=== PATIENT | male | born 1965 | race Caucasian/White ===

== ENCOUNTER 2020-08-31 10:34 | Inpatient (IN) | payer OTHER ==
[~2020-08-31] VITALS: Ht 180.3 cm; Wt 102.1 kg
[~2020-08-31 10:34] MED LIST: AMLODIPINE BESY10 MG PO; HYDROCHLOROTHIA25 MG PO; SIMVASTATIN20 MG PO; VASOTEC5 MG PO; ZESTRIL20 MG PO
[2020-08-31 11:13] LABS: BASOPHILS % 0.2 % (0.0-1.0); HEMATOCRIT 41.3 % (38.2-49.6); HEMOGLOBIN 14.5 g/dL (14.0-18.0); LYMPHOCYTES # (AUTO) 0.9 (1.0-3.2); LYMPHOCYTES % 6.7 % (18.0-39.1); MEAN CORPUSCULAR HEMOGLOBIN 31.3 pg (28-32); MEAN CORPUSCULAR HGB CONC 35.1 g/dL (31-35); MEAN CORPUSCULAR VOLUME 89.2 fL (81-99); MONOCYTES # (AUTO) 0.7 (0.2-0.8); NEUTROPHILS # (AUTO) 11.3 (2.1-6.9); NEUTROPHILS % 87.1 % (38.7-80.0); PLATELET COUNT 342 x10e3/uL (140-360); RED BLOOD COUNT 4.63 x10e6/uL (4.3-5.7); RED CELL DISTRIBUTION WIDTH 12.8 % (11.7-14.4)
[2020-08-31 11:34] LABS: ALBUMIN/GLOBULIN RATIO 0.7 (0.8-2.0); ANION GAP 26.6 mmol/L (8-16); CALCIUM 8.1 mg/dL (8.4-10.2); CREATININE, SERUM 2.05 mg/dL (0.72-1.25); POTASSIUM 3.6 mmol/L (3.5-5.1)
[2020-08-31 11:41] LABS: CREATINE KINASE MB 4.2 ng/mL (0-5.0)
[2020-08-31] MEDS ORDERED: DOCUSATE SODIUM 100 MG CAP PO PRN (13:15)
[2020-08-31] MEDS ORDERED: HYDRALAZINE HCL 20 MG/ML VIAL IV PRN (13:15)
[2020-08-31] MEDS ORDERED: BENZONATATE 100 MG CAP PO PRN (13:15)
[2020-08-31] MEDS ORDERED: POLYETHYLENE GLYCOL 3350 17 GM PACK PO PRN (13:15)
[2020-08-31] MEDS ORDERED: SIMETHICONE 80 MG CHEW PO PRN (13:15)
[2020-08-31] MEDS ORDERED: POTASSIUM CHLORIDE 20 MEQ TAB CR PO PRN (13:15)
[2020-08-31] MEDS ORDERED: DIPHENHYDRAMINE HCL 25 MG CAP PO PRN (13:15)
[2020-08-31] MEDS ORDERED: DEXTROSE 50% SYRINGE 50 ML IV PRN (13:15)
[2020-08-31] MEDS ORDERED: HYDROCODONE/APAP 5MG-325MG TAB PO PRN (13:15)
[2020-08-31] MEDS ORDERED: LIDOCAINE 4% PATCH TP PRN (13:15)
[2020-08-31] MEDS ORDERED: ONDANSETRON HCL INJ 2MG/ML 2ML 2 MG/ML VIAL IV PRN (13:15)
[2020-08-31] MEDS ORDERED: CHLORASEPTIC SPRAY 177 ML BTL MM PRN (13:15)
[2020-08-31] MEDS ORDERED: DEXAMETHASONE PHOS 4MG/ML 5ML MULTIDOSE VIAL IV SCH (13:15)
[2020-08-31] MEDS ORDERED: REMDESIVIR 200MG/NS 100ML 200 MG in SODIUM CHLORIDE 0.9% 100 ML 100 ML IV ONE (14:30)
[2020-08-31] MEDS: DEXAMETHASONE SOD PHOS INJ 4 MG/ML VIAL IV SCH (14:36)
[2020-08-31] MEDS: CEFTRIAXONE SOD 1 GM/NS 50 ML 50 ML IV SCH (14:36)
[2020-08-31] MEDS ORDERED: SODIUM CHLORIDE 0.9% 50ML 50 ML ONE (14:58)
[2020-08-31] MEDS ORDERED: LACTATED RINGER'S 1,000 ML INJ ONE (15:45)
[2020-08-31] MEDS: ASCORBIC ACID 500 MG TAB PO SCH (16:53)
[2020-08-31] MEDS: ENOXAPARIN SOD INJ 40 MG/0.4 ML SYR SC SCH (16:53)
[2020-08-31] MEDS: AZITHROMYCIN 500MG/NS 250 ML 250 ML IV SCH (16:53)
[2020-09-01 06:24] LABS: BASOPHILS % 0.1 % (0.0-1.0); HEMATOCRIT 37.3 % (38.2-49.6); HEMOGLOBIN 13.2 g/dL (14.0-18.0); LYMPHOCYTES # (AUTO) 0.9 (1.0-3.2); LYMPHOCYTES % 13.4 % (18.0-39.1); MEAN CORPUSCULAR HEMOGLOBIN 31.4 pg (28-32); MEAN CORPUSCULAR HGB CONC 35.4 g/dL (31-35); MEAN CORPUSCULAR VOLUME 88.6 fL (81-99); MONOCYTES # (AUTO) 0.5 (0.2-0.8); MONOCYTES % 6.8 % (4.4-11.3); NEUTROPHILS # (AUTO) 5.5 (2.1-6.9); NEUTROPHILS % 78.5 % (38.7-80.0); PLATELET COUNT 318 x10e3/uL (140-360); RED BLOOD COUNT 4.21 x10e6/uL (4.3-5.7); RED CELL DISTRIBUTION WIDTH 12.5 % (11.7-14.4)
[2020-09-01 06:59] LABS: LYMPHOCYTES % (MANUAL) 8 % (19-48); METAMYELOCYTES % (MANUAL) 1 % (0-0); MONOCYTES % (MANUAL) 6 % (3.4-9.0); NEUTROPHILS % (MANUAL) 84 % (40-74); PLATELET ESTIMATE ADEQUATE; PLATELET MORPHOLOGY COMMENT NORMAL; RBC MORPHOLOGY COMMENT NORMAL
[2020-09-01 07:09] LABS: ALANINE AMINOTRANSFERASE 75 IU/L (0-55); ALBUMIN 2.4 g/dL (3.5-5.0); ALBUMIN/GLOBULIN RATIO 0.6 (0.8-2.0); ALKALINE PHOSPHATASE 56 IU/L (40-150); ANION GAP 18.8 mmol/L (8-16); BLOOD UREA NITROGEN 50 mg/dL (7-26); BUN/CREATININE RATIO 45 (6-25); CALCIUM 7.8 mg/dL (8.4-10.2); CARBON DIOXIDE 24 mmol/L (22-29); CHLORIDE 94 mmol/L (98-107); CREATININE, SERUM 1.12 mg/dL (0.72-1.25); EST GLOMERULAR FILTRATION RATE > 60 ML/MIN (60-); GLUCOSE 139 mg/dL (74-118); POTASSIUM 3.8 mmol/L (3.5-5.1); SODIUM 133 mmol/L (136-145)
[2020-09-01 07:26] LABS: CREATINE KINASE MB 6.3 ng/mL (0-5.0)
[2020-09-01 07:47] LABS: MAGNESIUM 2.8 MG/DL (1.3-2.1); PHOSPHORUS 4.1 MG/DL (2.3-4.7)
[2020-09-01] MEDS: PANTOPRAZOLE SOD 40 MG TABEC PO SCH (07:56)
[2020-09-01 08:06] LABS: FERRITIN 1882.23 ng/mL (21.81-274.66)
[2020-09-01] MEDS: DEXAMETHASONE SOD PHOS INJ 4 MG/ML VIAL IV SCH (08:13)
[2020-09-01] MEDS: LISINOPRIL 20 MG TAB PO SCH (08:13)
[2020-09-01] MEDS: ASCORBIC ACID 500 MG TAB PO SCH ×2 (08:13→17:12)
[2020-09-01] MEDS: ZINC SULFATE 220 MG CAP PO SCH (08:13)
[2020-09-01] MEDS: AMLODIPINE BESYLATE 10 MG TAB PO SCH (08:14)
[2020-09-01] MEDS: CEFTRIAXONE SOD 1 GM/NS 50 ML 50 ML IV SCH (12:30)
[2020-09-01] MEDS: AZITHROMYCIN 500MG/NS 250 ML 250 ML IV SCH (13:00)
[2020-09-01] MEDS: REMDESIVIR 100MG/NS 100ML 100 MG in SODIUM CHLORIDE 0.9% 100 ML 100 ML IV SCH ×2 (13:00→15:00)
[2020-09-01 13:42] LABS: CREATINE KINASE MB 7.2 ng/mL (0-5.0)
[2020-09-01] MEDS ORDERED: SODIUM CHLORIDE 0.9% 50ML 50 ML ONE (15:08)
[2020-09-01] MEDS: ENOXAPARIN SOD INJ 40 MG/0.4 ML SYR SC SCH (17:12)
[2020-09-01 20:00] VITALS: BP 104/66
[2020-09-01 23:00] VITALS: BP 118/60
[2020-09-02] VITALS (28 sets, daily range): BP systolic 107–141; BP diastolic 36–74
[2020-09-02] MEDS: ASCORBIC ACID 500 MG TAB PO SCH ×2 (08:15→17:12)
[2020-09-02] MEDS: ZINC SULFATE 220 MG CAP PO SCH (08:15)
[2020-09-02] MEDS: DEXAMETHASONE SOD PHOS INJ 4 MG/ML VIAL IV SCH (08:16)
[2020-09-02] MEDS: PANTOPRAZOLE SOD 40 MG TABEC PO SCH (08:16)
[2020-09-02] MEDS: LISINOPRIL 20 MG TAB PO SCH (08:30)
[2020-09-02] MEDS: AMLODIPINE BESYLATE 10 MG TAB PO SCH (08:32)
[2020-09-02] MEDS: GUAIFENESIN/CODEINE 10 ML CUP PO PRN (08:33)
[2020-09-02] MEDS: CEFTRIAXONE SOD 1 GM/NS 50 ML 50 ML IV SCH (14:12)
[2020-09-02] MEDS: AZITHROMYCIN 500MG/NS 250 ML 250 ML IV SCH (14:12)
[2020-09-02] MEDS: REMDESIVIR 100MG/NS 100ML 100 MG in SODIUM CHLORIDE 0.9% 100 ML 100 ML IV SCH (15:00)
[2020-09-02] MEDS: ENOXAPARIN SOD INJ 40 MG/0.4 ML SYR SC SCH (17:12)
[2020-09-03] VITALS (22 sets, daily range): BP systolic 123–163; BP diastolic 63–90
[2020-09-03 04:46] LABS: BASOPHILS # (AUTO) 0.1 (0.0-0.1); BASOPHILS % 0.4 % (0.0-1.0); HEMATOCRIT 43.8 % (38.2-49.6); HEMOGLOBIN 14.6 g/dL (14.0-18.0); LYMPHOCYTES # (AUTO) 1.3 (1.0-3.2); MEAN CORPUSCULAR HEMOGLOBIN 31.6 pg (28-32); MEAN CORPUSCULAR HGB CONC 33.3 g/dL (31-35); MEAN CORPUSCULAR VOLUME 94.8 fL (81-99); MONOCYTES # (AUTO) 0.9 (0.2-0.8); MONOCYTES % 5.8 % (4.4-11.3); NEUTROPHILS # (AUTO) 13.7 (2.1-6.9); NEUTROPHILS % 84.4 % (38.7-80.0); PLATELET COUNT 418 x10e3/uL (140-360); RED BLOOD COUNT 4.62 x10e6/uL (4.3-5.7); RED CELL DISTRIBUTION WIDTH 12.6 % (11.7-14.4)
[2020-09-03 05:10] LABS: ALANINE AMINOTRANSFERASE 72 IU/L (0-55); ALBUMIN 2.5 g/dL (3.5-5.0); ALBUMIN/GLOBULIN RATIO 0.6 (0.8-2.0); ALKALINE PHOSPHATASE 71 IU/L (40-150); BLOOD UREA NITROGEN 35 mg/dL (7-26); BUN/CREATININE RATIO 43 (6-25); CALCIUM 7.7 mg/dL (8.4-10.2); CARBON DIOXIDE 25 mmol/L (22-29); CHLORIDE 97 mmol/L (98-107); CREATININE, SERUM 0.82 mg/dL (0.72-1.25); EST GLOMERULAR FILTRATION RATE > 60 ML/MIN (60-); GLUCOSE 136 mg/dL (74-118); SODIUM 137 mmol/L (136-145)
[2020-09-03 07:30] LABS: LYMPHOCYTES % (MANUAL) 8 % (19-48); MONOCYTES % (MANUAL) 7 % (3.4-9.0); NEUTROPHILS % (MANUAL) 83 % (40-74); PLATELET ESTIMATE SLIGHTLY INCREASED; PLATELET MORPHOLOGY COMMENT NORMAL; RBC MORPHOLOGY COMMENT NORMAL
[2020-09-03] MEDS: PANTOPRAZOLE SOD 40 MG TABEC PO SCH (07:59)
[2020-09-03] MEDS: DEXAMETHASONE SOD PHOS INJ 4 MG/ML VIAL IV SCH (07:59)
[2020-09-03] MEDS: ASCORBIC ACID 500 MG TAB PO SCH ×2 (07:59→17:09)
[2020-09-03] MEDS: ZINC SULFATE 220 MG CAP PO SCH (08:00)
[2020-09-03] MEDS: LISINOPRIL 20 MG TAB PO SCH (08:00)
[2020-09-03] MEDS: AMLODIPINE BESYLATE 10 MG TAB PO SCH (08:00)
[2020-09-03] MEDS: CEFTRIAXONE SOD 1 GM/NS 50 ML 50 ML IV SCH (13:52)
[2020-09-03] MEDS: REMDESIVIR 100MG/NS 100ML 100 MG in SODIUM CHLORIDE 0.9% 100 ML 100 ML IV SCH (13:52)
[2020-09-03] MEDS: AZITHROMYCIN 500MG/NS 250 ML 250 ML IV SCH (13:52)
[2020-09-03] MEDS: ENOXAPARIN SOD INJ 40 MG/0.4 ML SYR SC SCH (17:09)
[2020-09-04] VITALS (18 sets, daily range): BP systolic 107–182; BP diastolic 48–93
[2020-09-04 05:03] LABS: BASOPHILS % 0.3 % (0.0-1.0); EOSINOPHILS % 0.2 % (0.0-6.0); HEMATOCRIT 42.4 % (38.2-49.6); HEMOGLOBIN 14.4 g/dL (14.0-18.0); LYMPHOCYTES # (AUTO) 0.9 (1.0-3.2); MEAN CORPUSCULAR HEMOGLOBIN 31.2 pg (28-32); MONOCYTES # (AUTO) 0.6 (0.2-0.8); MONOCYTES % 4.6 % (4.4-11.3); NEUTROPHILS # (AUTO) 11.3 (2.1-6.9); NEUTROPHILS % 85.8 % (38.7-80.0); PLATELET COUNT 317 x10e3/uL (140-360); RED BLOOD COUNT 4.61 x10e6/uL (4.3-5.7); RED CELL DISTRIBUTION WIDTH 12.5 % (11.7-14.4)
[2020-09-04 05:31] LABS: ALANINE AMINOTRANSFERASE 72 IU/L (0-55); ALBUMIN 2.5 g/dL (3.5-5.0); ALBUMIN/GLOBULIN RATIO 0.6 (0.8-2.0); ALKALINE PHOSPHATASE 78 IU/L (40-150); ANION GAP 17.2 mmol/L (8-16); BLOOD UREA NITROGEN 27 mg/dL (7-26); BUN/CREATININE RATIO 33 (6-25); CALCIUM 7.8 mg/dL (8.4-10.2); CARBON DIOXIDE 27 mmol/L (22-29); CHLORIDE 99 mmol/L (98-107); CREATININE, SERUM 0.81 mg/dL (0.72-1.25); EST GLOMERULAR FILTRATION RATE > 60 ML/MIN (60-); GLUCOSE 119 mg/dL (74-118); POTASSIUM 4.2 mmol/L (3.5-5.1); SODIUM 139 mmol/L (136-145)
[2020-09-04] MEDS: LISINOPRIL 20 MG TAB PO SCH (09:00)
[2020-09-04] MEDS: DEXAMETHASONE SOD PHOS INJ 4 MG/ML VIAL IV SCH (09:01)
[2020-09-04] MEDS: AMLODIPINE BESYLATE 10 MG TAB PO SCH (09:01)
[2020-09-04] MEDS: ASCORBIC ACID 500 MG TAB PO SCH ×2 (09:01→17:02)
[2020-09-04] MEDS: ZINC SULFATE 220 MG CAP PO SCH (09:01)
[2020-09-04] MEDS: PANTOPRAZOLE SOD 40 MG TABEC PO SCH (09:01)
[2020-09-04] MEDS: CEFTRIAXONE SOD 1 GM/NS 50 ML 50 ML IV SCH (12:42)
[2020-09-04] MEDS: AZITHROMYCIN 500MG/NS 250 ML 250 ML IV SCH (12:42)
[2020-09-04] MEDS: REMDESIVIR 100MG/NS 100ML 100 MG in SODIUM CHLORIDE 0.9% 100 ML 100 ML IV SCH (14:54)
[2020-09-04] MEDS: ENOXAPARIN SOD INJ 40 MG/0.4 ML SYR SC SCH (17:02)
[2020-09-05] VITALS (12 sets, daily range): BP systolic 107–132; BP diastolic 52–82
[2020-09-05 07:56] LABS: BASOPHILS % 0.3 % (0.0-1.0); EOSINOPHILS # (AUTO) 0.1 (0.0-0.4); EOSINOPHILS % 0.7 % (0.0-6.0); HEMATOCRIT 40.9 % (38.2-49.6); HEMOGLOBIN 13.8 g/dL (14.0-18.0); LYMPHOCYTES # (AUTO) 0.9 (1.0-3.2); LYMPHOCYTES % 7.7 % (18.0-39.1); MEAN CORPUSCULAR HEMOGLOBIN 31.2 pg (28-32); MEAN CORPUSCULAR HGB CONC 33.7 g/dL (31-35); MEAN CORPUSCULAR VOLUME 92.5 fL (81-99); MONOCYTES # (AUTO) 0.4 (0.2-0.8); MONOCYTES % 3.5 % (4.4-11.3); NEUTROPHILS # (AUTO) 10.3 (2.1-6.9); NEUTROPHILS % 85.4 % (38.7-80.0); PLATELET COUNT 259 x10e3/uL (140-360); RED BLOOD COUNT 4.42 x10e6/uL (4.3-5.7); RED CELL DISTRIBUTION WIDTH 12.6 % (11.7-14.4)
[2020-09-05] MEDS: PANTOPRAZOLE SOD 40 MG TABEC PO SCH (07:58)
[2020-09-05] MEDS: DEXAMETHASONE SOD PHOS INJ 4 MG/ML VIAL IV SCH (07:58)
[2020-09-05] MEDS: ASCORBIC ACID 500 MG TAB PO SCH ×2 (07:59→18:05)
[2020-09-05] MEDS: ZINC SULFATE 220 MG CAP PO SCH (07:59)
[2020-09-05] MEDS: LISINOPRIL 20 MG TAB PO SCH (08:09)
[2020-09-05] MEDS: AMLODIPINE BESYLATE 10 MG TAB PO SCH (08:09)
[2020-09-05 08:14] LABS: ANION GAP 16.3 mmol/L (8-16); BLOOD UREA NITROGEN 25 mg/dL (7-26); BUN/CREATININE RATIO 36 (6-25); CALCIUM 7.7 mg/dL (8.4-10.2); CARBON DIOXIDE 27 mmol/L (22-29); CHLORIDE 100 mmol/L (98-107); EST GLOMERULAR FILTRATION RATE > 60 ML/MIN (60-); GLUCOSE 111 mg/dL (74-118); POTASSIUM 4.3 mmol/L (3.5-5.1); SODIUM 139 mmol/L (136-145)
[2020-09-05] MEDS: CEFTRIAXONE SOD 1 GM/NS 50 ML 50 ML IV SCH (13:16)
[2020-09-05] MEDS: GUAIFENESIN/CODEINE 10 ML CUP PO PRN (14:02)
[2020-09-05] MEDS: ENOXAPARIN SOD INJ 40 MG/0.4 ML SYR SC SCH (18:05)
[2020-09-06] VITALS (20 sets, daily range): BP systolic 119–140; BP diastolic 70–86
[2020-09-06 06:04] LABS: BASOPHILS % 0.2 % (0.0-1.0); EOSINOPHILS # (AUTO) 0.1 (0.0-0.4); EOSINOPHILS % 0.9 % (0.0-6.0); HEMATOCRIT 38.5 % (38.2-49.6); HEMOGLOBIN 13.1 g/dL (14.0-18.0); LYMPHOCYTES # (AUTO) 0.7 (1.0-3.2); LYMPHOCYTES % 7.8 % (18.0-39.1); MEAN CORPUSCULAR HEMOGLOBIN 31.8 pg (28-32); MEAN CORPUSCULAR VOLUME 93.4 fL (81-99); MONOCYTES # (AUTO) 0.6 (0.2-0.8); MONOCYTES % 6.9 % (4.4-11.3); NEUTROPHILS # (AUTO) 7.4 (2.1-6.9); NEUTROPHILS % 82.1 % (38.7-80.0); PLATELET COUNT 224 x10e3/uL (140-360); RED BLOOD COUNT 4.12 x10e6/uL (4.3-5.7); RED CELL DISTRIBUTION WIDTH 12.6 % (11.7-14.4)
[2020-09-06 06:38] LABS: ANION GAP 14.6 mmol/L (8-16); BLOOD UREA NITROGEN 27 mg/dL (7-26); BUN/CREATININE RATIO 41 (6-25); CALCIUM 7.6 mg/dL (8.4-10.2); CARBON DIOXIDE 27 mmol/L (22-29); CHLORIDE 102 mmol/L (98-107); CREATININE, SERUM 0.66 mg/dL (0.72-1.25); EST GLOMERULAR FILTRATION RATE > 60 ML/MIN (60-); GLUCOSE 129 mg/dL (74-118); POTASSIUM 4.6 mmol/L (3.5-5.1); SODIUM 139 mmol/L (136-145)
[2020-09-06] MEDS: PANTOPRAZOLE SOD 40 MG TABEC PO SCH (08:05)
[2020-09-06] MEDS: DEXAMETHASONE SOD PHOS INJ 4 MG/ML VIAL IV SCH (09:32)
[2020-09-06] MEDS: AMLODIPINE BESYLATE 10 MG TAB PO SCH (09:33)
[2020-09-06] MEDS: ZINC SULFATE 220 MG CAP PO SCH (09:33)
[2020-09-06] MEDS: LISINOPRIL 20 MG TAB PO SCH (09:33)
[2020-09-06] MEDS: ASCORBIC ACID 500 MG TAB PO SCH ×2 (09:33→17:50)
[2020-09-06] MEDS: ENOXAPARIN SOD INJ 40 MG/0.4 ML SYR SC SCH (17:50)
[2020-09-07] VITALS (20 sets, daily range): BP systolic 102–135; BP diastolic 56–99
[2020-09-07] MEDS: MELATONIN 5 MG TABLET PO PRN (00:06)
[2020-09-07] MEDS: GUAIFENESIN/CODEINE 10 ML CUP PO PRN (04:06)
[2020-09-07 06:19] LABS: BASOPHILS % 0.3 % (0.0-1.0); EOSINOPHILS # (AUTO) 0.2 (0.0-0.4); EOSINOPHILS % 1.1 % (0.0-6.0); HEMATOCRIT 39.7 % (38.2-49.6); HEMOGLOBIN 13.3 g/dL (14.0-18.0); LYMPHOCYTES # (AUTO) 0.8 (1.0-3.2); LYMPHOCYTES % 6.1 % (18.0-39.1); MEAN CORPUSCULAR HEMOGLOBIN 30.9 pg (28-32); MEAN CORPUSCULAR HGB CONC 33.5 g/dL (31-35); MEAN CORPUSCULAR VOLUME 92.3 fL (81-99); MONOCYTES # (AUTO) 0.6 (0.2-0.8); MONOCYTES % 4.4 % (4.4-11.3); NEUTROPHILS # (AUTO) 11.3 (2.1-6.9); NEUTROPHILS % 86.5 % (38.7-80.0); PLATELET COUNT 229 x10e3/uL (140-360); RED CELL DISTRIBUTION WIDTH 12.6 % (11.7-14.4)
[2020-09-07 06:58] LABS: ALANINE AMINOTRANSFERASE 131 IU/L (0-55); ALBUMIN 2.1 g/dL (3.5-5.0); ALBUMIN/GLOBULIN RATIO 0.7 (0.8-2.0); ALKALINE PHOSPHATASE 76 IU/L (40-150); ANION GAP 14.9 mmol/L (8-16); BLOOD UREA NITROGEN 24 mg/dL (7-26); BUN/CREATININE RATIO 36 (6-25); CALCIUM 7.8 mg/dL (8.4-10.2); CARBON DIOXIDE 27 mmol/L (22-29); CHLORIDE 102 mmol/L (98-107); CREATININE, SERUM 0.67 mg/dL (0.72-1.25); EST GLOMERULAR FILTRATION RATE > 60 ML/MIN (60-); GLUCOSE 130 mg/dL (74-118); POTASSIUM 4.9 mmol/L (3.5-5.1); SODIUM 139 mmol/L (136-145)
[2020-09-07] MEDS: DEXAMETHASONE SOD PHOS INJ 4 MG/ML VIAL IV SCH (08:01)
[2020-09-07] MEDS: ASCORBIC ACID 500 MG TAB PO SCH ×2 (08:01→17:14)
[2020-09-07] MEDS: AMLODIPINE BESYLATE 10 MG TAB PO SCH (08:01)
[2020-09-07] MEDS: PANTOPRAZOLE SOD 40 MG TABEC PO SCH (08:01)
[2020-09-07] MEDS: ZINC SULFATE 220 MG CAP PO SCH (08:01)
[2020-09-07] MEDS: LISINOPRIL 20 MG TAB PO SCH (08:01)
[2020-09-07] MEDS: ENOXAPARIN SOD INJ 40 MG/0.4 ML SYR SC SCH (17:14)
[2020-09-08] VITALS (25 sets, daily range): BP systolic 111–153; BP diastolic 61–91
[2020-09-08 05:02] LABS: BASOPHILS % 0.1 % (0.0-1.0); EOSINOPHILS # (AUTO) 0.1 (0.0-0.4); EOSINOPHILS % 0.4 % (0.0-6.0); LYMPHOCYTES # (AUTO) 0.9 (1.0-3.2); LYMPHOCYTES % 6.4 % (18.0-39.1); MEAN CORPUSCULAR HEMOGLOBIN 31.2 pg (28-32); MEAN CORPUSCULAR HGB CONC 33.3 g/dL (31-35); MEAN CORPUSCULAR VOLUME 93.5 fL (81-99); MONOCYTES # (AUTO) 0.7 (0.2-0.8); MONOCYTES % 4.7 % (4.4-11.3); NEUTROPHILS # (AUTO) 12.3 (2.1-6.9); NEUTROPHILS % 86.8 % (38.7-80.0); PLATELET COUNT 219 x10e3/uL (140-360); RED BLOOD COUNT 4.17 x10e6/uL (4.3-5.7); RED CELL DISTRIBUTION WIDTH 12.4 % (11.7-14.4)
[2020-09-08 05:33] LABS: ANION GAP 16.9 mmol/L (8-16); BLOOD UREA NITROGEN 23 mg/dL (7-26); BUN/CREATININE RATIO 34 (6-25); CALCIUM 7.8 mg/dL (8.4-10.2); CARBON DIOXIDE 25 mmol/L (22-29); CHLORIDE 103 mmol/L (98-107); CREATININE, SERUM 0.67 mg/dL (0.72-1.25); EST GLOMERULAR FILTRATION RATE > 60 ML/MIN (60-); GLUCOSE 114 mg/dL (74-118); POTASSIUM 4.9 mmol/L (3.5-5.1); SODIUM 140 mmol/L (136-145)
[2020-09-08] MEDS: LISINOPRIL 20 MG TAB PO SCH (08:13)
[2020-09-08] MEDS: ACETAMINOPHEN 325 MG TAB PO PRN ×2 (08:13→23:00)
[2020-09-08] MEDS: ASCORBIC ACID 500 MG TAB PO SCH ×2 (08:13→16:40)
[2020-09-08] MEDS: DEXAMETHASONE SOD PHOS INJ 4 MG/ML VIAL IV SCH (08:13)
[2020-09-08] MEDS: PANTOPRAZOLE SOD 40 MG TABEC PO SCH (08:13)
[2020-09-08] MEDS: ZINC SULFATE 220 MG CAP PO SCH (08:13)
[2020-09-08] MEDS: AMLODIPINE BESYLATE 10 MG TAB PO SCH (08:13)
[2020-09-08] MEDS: ENOXAPARIN SOD INJ 40 MG/0.4 ML SYR SC SCH (16:40)
[2020-09-09] VITALS (10 sets, daily range): BP systolic 110–129; BP diastolic 61–81
[2020-09-09 07:21] LABS: BASOPHILS # (AUTO) 0.1 (0.0-0.1); BASOPHILS % 0.3 % (0.0-1.0); EOSINOPHILS # (AUTO) 0.1 (0.0-0.4); EOSINOPHILS % 0.6 % (0.0-6.0); HEMATOCRIT 40.7 % (38.2-49.6); HEMOGLOBIN 13.6 g/dL (14.0-18.0); LYMPHOCYTES % 5.2 % (18.0-39.1); MEAN CORPUSCULAR HGB CONC 33.4 g/dL (31-35); MEAN CORPUSCULAR VOLUME 92.7 fL (81-99); MONOCYTES # (AUTO) 0.9 (0.2-0.8); MONOCYTES % 4.6 % (4.4-11.3); NEUTROPHILS # (AUTO) 16.5 (2.1-6.9); PLATELET COUNT 205 x10e3/uL (140-360); RED BLOOD COUNT 4.39 x10e6/uL (4.3-5.7); RED CELL DISTRIBUTION WIDTH 12.5 % (11.7-14.4)
[2020-09-09 07:41] LABS: ALANINE AMINOTRANSFERASE 293 IU/L (0-55); ALBUMIN/GLOBULIN RATIO 0.5 (0.8-2.0); ALKALINE PHOSPHATASE 89 IU/L (40-150); ANION GAP 15.8 mmol/L (8-16); BLOOD UREA NITROGEN 25 mg/dL (7-26); BUN/CREATININE RATIO 40 (6-25); CALCIUM 7.9 mg/dL (8.4-10.2); CARBON DIOXIDE 24 mmol/L (22-29); CHLORIDE 105 mmol/L (98-107); CREATININE, SERUM 0.62 mg/dL (0.72-1.25); EST GLOMERULAR FILTRATION RATE > 60 ML/MIN (60-); GLUCOSE 95 mg/dL (74-118); POTASSIUM 4.8 mmol/L (3.5-5.1); SODIUM 140 mmol/L (136-145)
[2020-09-09] MEDS: PANTOPRAZOLE SOD 40 MG TABEC PO SCH (07:46)
[2020-09-09] MEDS: ASCORBIC ACID 500 MG TAB PO SCH ×2 (08:10→16:42)
[2020-09-09] MEDS: DEXAMETHASONE SOD PHOS INJ 4 MG/ML VIAL IV SCH (08:10)
[2020-09-09] MEDS: ZINC SULFATE 220 MG CAP PO SCH (08:10)
[2020-09-09] MEDS: LISINOPRIL 20 MG TAB PO SCH (09:00)
[2020-09-09] MEDS: AMLODIPINE BESYLATE 10 MG TAB PO SCH (09:00)
[2020-09-09] MEDS: ENOXAPARIN SOD INJ 40 MG/0.4 ML SYR SC SCH ×3 (11:30→20:28)
[2020-09-09] MEDS: BENZONATATE 100 MG CAP PO PRN (14:36)
[2020-09-10] VITALS (16 sets, daily range): BP systolic 98–137; BP diastolic 55–92
[2020-09-10 06:14] LABS: BASOPHILS % 0.1 % (0.0-1.0); EOSINOPHILS # (AUTO) 0.1 (0.0-0.4); EOSINOPHILS % 0.8 % (0.0-6.0); HEMATOCRIT 38.8 % (38.2-49.6); LYMPHOCYTES # (AUTO) 0.9 (1.0-3.2); LYMPHOCYTES % 5.7 % (18.0-39.1); MEAN CORPUSCULAR HEMOGLOBIN 31.1 pg (28-32); MEAN CORPUSCULAR HGB CONC 33.5 g/dL (31-35); MEAN CORPUSCULAR VOLUME 92.8 fL (81-99); MONOCYTES # (AUTO) 0.7 (0.2-0.8); MONOCYTES % 4.3 % (4.4-11.3); NEUTROPHILS # (AUTO) 14.1 (2.1-6.9); NEUTROPHILS % 88.2 % (38.7-80.0); PLATELET COUNT 202 x10e3/uL (140-360); RED BLOOD COUNT 4.18 x10e6/uL (4.3-5.7); RED CELL DISTRIBUTION WIDTH 12.6 % (11.7-14.4)
[2020-09-10 06:30] LABS: ANION GAP 14.7 mmol/L (8-16); BLOOD UREA NITROGEN 24 mg/dL (7-26); BUN/CREATININE RATIO 40 (6-25); CALCIUM 7.8 mg/dL (8.4-10.2); CARBON DIOXIDE 25 mmol/L (22-29); CHLORIDE 104 mmol/L (98-107); EST GLOMERULAR FILTRATION RATE > 60 ML/MIN (60-); GLUCOSE 89 mg/dL (74-118); POTASSIUM 4.7 mmol/L (3.5-5.1); SODIUM 139 mmol/L (136-145)
[2020-09-10 07:16] LABS: INR 1.04; PROTHROMBIN TIME 14.2 seconds (11.9-14.5)
[2020-09-10] MEDS: PANTOPRAZOLE SOD 40 MG TABEC PO SCH (07:29)
[2020-09-10] MEDS: ZINC SULFATE 220 MG CAP PO SCH (08:00)
[2020-09-10] MEDS: ENOXAPARIN SOD INJ 40 MG/0.4 ML SYR SC SCH (08:00)
[2020-09-10] MEDS: DEXAMETHASONE SOD PHOS INJ 4 MG/ML VIAL IV SCH (08:00)
[2020-09-10] MEDS: ASCORBIC ACID 500 MG TAB PO SCH ×2 (08:00→16:15)
[2020-09-10] MEDS: AMLODIPINE BESYLATE 10 MG TAB PO SCH (08:04)
[2020-09-10] MEDS: LISINOPRIL 20 MG TAB PO SCH (08:05)
[2020-09-10] MEDS: MELATONIN 5 MG TABLET PO PRN (21:17)
[2020-09-10] MEDS: ENOXAPARIN SODIUM INJ 100 MG/ML SYR SC SCH (21:18)
[2020-09-11] VITALS (23 sets, daily range): BP systolic 100–139; BP diastolic 47–78
[2020-09-11 06:08] LABS: BASOPHILS % 0.1 % (0.0-1.0); EOSINOPHILS # (AUTO) 0.2 (0.0-0.4); EOSINOPHILS % 1.4 % (0.0-6.0); HEMATOCRIT 35.9 % (38.2-49.6); HEMOGLOBIN 12.1 g/dL (14.0-18.0); LYMPHOCYTES # (AUTO) 0.9 (1.0-3.2); LYMPHOCYTES % 6.2 % (18.0-39.1); MEAN CORPUSCULAR HGB CONC 33.7 g/dL (31-35); MEAN CORPUSCULAR VOLUME 92.1 fL (81-99); MONOCYTES # (AUTO) 0.5 (0.2-0.8); MONOCYTES % 3.5 % (4.4-11.3); NEUTROPHILS # (AUTO) 13.3 (2.1-6.9); NEUTROPHILS % 88.2 % (38.7-80.0); PLATELET COUNT 192 x10e3/uL (140-360); RED CELL DISTRIBUTION WIDTH 12.6 % (11.7-14.4)
[2020-09-11 06:37] LABS: ANION GAP 13.8 mmol/L (8-16); BLOOD UREA NITROGEN 27 mg/dL (7-26); BUN/CREATININE RATIO 42 (6-25); CALCIUM 7.7 mg/dL (8.4-10.2); CARBON DIOXIDE 24 mmol/L (22-29); CHLORIDE 104 mmol/L (98-107); CREATININE, SERUM 0.64 mg/dL (0.72-1.25); EST GLOMERULAR FILTRATION RATE > 60 ML/MIN (60-); GLUCOSE 120 mg/dL (74-118); POTASSIUM 4.8 mmol/L (3.5-5.1); SODIUM 137 mmol/L (136-145)
[2020-09-11] MEDS: PANTOPRAZOLE SOD 40 MG TABEC PO SCH (08:00)
[2020-09-11] MEDS: ENOXAPARIN SODIUM INJ 100 MG/ML SYR SC SCH ×2 (08:10→22:40)
[2020-09-11] MEDS: ASCORBIC ACID 500 MG TAB PO SCH ×2 (08:10→17:07)
[2020-09-11] MEDS: LISINOPRIL 20 MG TAB PO SCH (08:10)
[2020-09-11] MEDS: ZINC SULFATE 220 MG CAP PO SCH (08:10)
[2020-09-11] MEDS: AMLODIPINE BESYLATE 10 MG TAB PO SCH (08:11)
[2020-09-11] MEDS: MELATONIN 5 MG TABLET PO PRN (22:41)
[2020-09-11] MEDS: BENZONATATE 100 MG CAP PO PRN (22:41)
[2020-09-12] VITALS (23 sets, daily range): BP systolic 95–139; BP diastolic 54–93
[2020-09-12 06:05] LABS: BASOPHILS % 0.1 % (0.0-1.0); EOSINOPHILS # (AUTO) 0.4 (0.0-0.4); EOSINOPHILS % 3.3 % (0.0-6.0); HEMATOCRIT 37.2 % (38.2-49.6); HEMOGLOBIN 12.5 g/dL (14.0-18.0); LYMPHOCYTES % 8.2 % (18.0-39.1); MEAN CORPUSCULAR HEMOGLOBIN 31.6 pg (28-32); MEAN CORPUSCULAR HGB CONC 33.6 g/dL (31-35); MEAN CORPUSCULAR VOLUME 93.9 fL (81-99); MONOCYTES # (AUTO) 0.4 (0.2-0.8); MONOCYTES % 3.5 % (4.4-11.3); NEUTROPHILS # (AUTO) 10.6 (2.1-6.9); NEUTROPHILS % 84.1 % (38.7-80.0); PLATELET COUNT 218 x10e3/uL (140-360); RED BLOOD COUNT 3.96 x10e6/uL (4.3-5.7); RED CELL DISTRIBUTION WIDTH 12.7 % (11.7-14.4)
[2020-09-12 06:24] LABS: ALANINE AMINOTRANSFERASE 365 IU/L (0-55); ALBUMIN 1.7 g/dL (3.5-5.0); ALBUMIN/GLOBULIN RATIO 0.4 (0.8-2.0); ALKALINE PHOSPHATASE 138 IU/L (40-150); ANION GAP 13.8 mmol/L (8-16); BLOOD UREA NITROGEN 23 mg/dL (7-26); BUN/CREATININE RATIO 34 (6-25); CARBON DIOXIDE 26 mmol/L (22-29); CHLORIDE 103 mmol/L (98-107); CREATININE, SERUM 0.68 mg/dL (0.72-1.25); EST GLOMERULAR FILTRATION RATE > 60 ML/MIN (60-); GLUCOSE 121 mg/dL (74-118); PHOSPHORUS 3.7 MG/DL (2.3-4.7); POTASSIUM 4.8 mmol/L (3.5-5.1); SODIUM 138 mmol/L (136-145)
[2020-09-12] MEDS: PANTOPRAZOLE SOD 40 MG TABEC PO SCH (07:30)
[2020-09-12] MEDS: LISINOPRIL 20 MG TAB PO SCH (08:11)
[2020-09-12] MEDS: ASCORBIC ACID 500 MG TAB PO SCH ×2 (08:11→16:33)
[2020-09-12] MEDS: ENOXAPARIN SODIUM INJ 100 MG/ML SYR SC SCH ×2 (08:11→20:43)
[2020-09-12] MEDS: ZINC SULFATE 220 MG CAP PO SCH (08:11)
[2020-09-12] MEDS: AMLODIPINE BESYLATE 10 MG TAB PO SCH (08:11)
[2020-09-12] MEDS: BENZONATATE 100 MG CAP PO PRN (16:33)
[2020-09-12] MEDS ORDERED: ACETAMINOPHEN 1000 MG/100 ML 200 ML IV ONE (20:25)
[2020-09-13] VITALS (23 sets, daily range): BP systolic 104–148; BP diastolic 53–86
[2020-09-13] MEDS: ACETAMINOPHEN 325 MG TAB PO PRN (00:24)
[2020-09-13 05:55] LABS: BASOPHILS % 0.2 % (0.0-1.0); EOSINOPHILS # (AUTO) 0.6 (0.0-0.4); EOSINOPHILS % 5.6 % (0.0-6.0); HEMATOCRIT 37.7 % (38.2-49.6); HEMOGLOBIN 12.5 g/dL (14.0-18.0); LYMPHOCYTES # (AUTO) 0.9 (1.0-3.2); LYMPHOCYTES % 8.7 % (18.0-39.1); MEAN CORPUSCULAR HEMOGLOBIN 31.4 pg (28-32); MEAN CORPUSCULAR HGB CONC 33.2 g/dL (31-35); MEAN CORPUSCULAR VOLUME 94.7 fL (81-99); MONOCYTES # (AUTO) 0.4 (0.2-0.8); NEUTROPHILS # (AUTO) 8.6 (2.1-6.9); NEUTROPHILS % 80.9 % (38.7-80.0); PLATELET COUNT 208 x10e3/uL (140-360); RED BLOOD COUNT 3.98 x10e6/uL (4.3-5.7); RED CELL DISTRIBUTION WIDTH 12.7 % (11.7-14.4)
[2020-09-13 07:09] LABS: ALANINE AMINOTRANSFERASE 272 IU/L (0-55); ALBUMIN 1.6 g/dL (3.5-5.0); ALBUMIN/GLOBULIN RATIO 0.4 (0.8-2.0); ALKALINE PHOSPHATASE 154 IU/L (40-150); ANION GAP 14.5 mmol/L (8-16); BLOOD UREA NITROGEN 22 mg/dL (7-26); BUN/CREATININE RATIO 34 (6-25); CALCIUM 7.9 mg/dL (8.4-10.2); CARBON DIOXIDE 26 mmol/L (22-29); CHLORIDE 102 mmol/L (98-107); CREATININE, SERUM 0.64 mg/dL (0.72-1.25); EST GLOMERULAR FILTRATION RATE > 60 ML/MIN (60-); GLUCOSE 95 mg/dL (74-118); POTASSIUM 4.5 mmol/L (3.5-5.1); SODIUM 138 mmol/L (136-145)
[2020-09-13] MEDS: AMLODIPINE BESYLATE 10 MG TAB PO SCH (08:44)
[2020-09-13] MEDS: PANTOPRAZOLE SOD 40 MG TABEC PO SCH (08:44)
[2020-09-13] MEDS: ASCORBIC ACID 500 MG TAB PO SCH ×2 (08:45→16:57)
[2020-09-13] MEDS: ENOXAPARIN SODIUM INJ 100 MG/ML SYR SC SCH ×2 (08:45→20:39)
[2020-09-13] MEDS: ZINC SULFATE 220 MG CAP PO SCH (08:45)
[2020-09-13] MEDS: LISINOPRIL 20 MG TAB PO SCH (08:45)
[2020-09-13] MEDS: BENZONATATE 100 MG CAP PO PRN ×2 (15:16→20:39)
[2020-09-14] VITALS (30 sets, daily range): BP systolic 93–128; BP diastolic 54–85
[2020-09-14 05:07] LABS: BASOPHILS % 0.2 % (0.0-1.0); EOSINOPHILS # (AUTO) 0.7 (0.0-0.4); HEMATOCRIT 36.4 % (38.2-49.6); HEMOGLOBIN 12.1 g/dL (14.0-18.0); LYMPHOCYTES # (AUTO) 0.9 (1.0-3.2); MEAN CORPUSCULAR HEMOGLOBIN 31.3 pg (28-32); MEAN CORPUSCULAR HGB CONC 33.2 g/dL (31-35); MEAN CORPUSCULAR VOLUME 94.3 fL (81-99); MONOCYTES # (AUTO) 0.5 (0.2-0.8); MONOCYTES % 4.8 % (4.4-11.3); NEUTROPHILS # (AUTO) 7.8 (2.1-6.9); NEUTROPHILS % 78.5 % (38.7-80.0); PLATELET COUNT 236 x10e3/uL (140-360); RED BLOOD COUNT 3.86 x10e6/uL (4.3-5.7); RED CELL DISTRIBUTION WIDTH 12.7 % (11.7-14.4)
[2020-09-14 05:44] LABS: ANION GAP 14.3 mmol/L (8-16); BLOOD UREA NITROGEN 20 mg/dL (7-26); BUN/CREATININE RATIO 33 (6-25); CALCIUM 7.8 mg/dL (8.4-10.2); CARBON DIOXIDE 26 mmol/L (22-29); CHLORIDE 101 mmol/L (98-107); CREATININE, SERUM 0.61 mg/dL (0.72-1.25); EST GLOMERULAR FILTRATION RATE > 60 ML/MIN (60-); GLUCOSE 99 mg/dL (74-118); POTASSIUM 4.3 mmol/L (3.5-5.1); SODIUM 137 mmol/L (136-145)
[2020-09-14] MEDS: ASCORBIC ACID 500 MG TAB PO SCH ×3 (09:00→16:28)
[2020-09-14] MEDS: ZINC SULFATE 220 MG CAP PO SCH (10:00)
[2020-09-14] MEDS: ENOXAPARIN SODIUM INJ 100 MG/ML SYR SC SCH ×2 (10:00→21:00)
[2020-09-14] MEDS: PANTOPRAZOLE SOD 40 MG TABEC PO SCH (10:01)
[2020-09-14] MEDS: AMLODIPINE BESYLATE 10 MG TAB PO SCH (10:01)
[2020-09-14] MEDS: LISINOPRIL 20 MG TAB PO SCH (10:02)
[2020-09-14] MEDS: BENZONATATE 100 MG CAP PO PRN (16:28)
[2020-09-15] VITALS (27 sets, daily range): BP systolic 95–135; BP diastolic 53–83
[2020-09-15] MEDS: BENZONATATE 100 MG CAP PO PRN ×2 (03:44→19:46)
[2020-09-15 05:21] LABS: BASOPHILS % 0.4 % (0.0-1.0); EOSINOPHILS # (AUTO) 1.2 (0.0-0.4); EOSINOPHILS % 11.3 % (0.0-6.0); HEMATOCRIT 35.8 % (38.2-49.6); HEMOGLOBIN 11.6 g/dL (14.0-18.0); LYMPHOCYTES # (AUTO) 1.1 (1.0-3.2); LYMPHOCYTES % 10.5 % (18.0-39.1); MEAN CORPUSCULAR HEMOGLOBIN 30.4 pg (28-32); MEAN CORPUSCULAR HGB CONC 32.4 g/dL (31-35); MEAN CORPUSCULAR VOLUME 93.7 fL (81-99); MONOCYTES # (AUTO) 0.5 (0.2-0.8); NEUTROPHILS # (AUTO) 7.4 (2.1-6.9); NEUTROPHILS % 72.2 % (38.7-80.0); PLATELET COUNT 257 x10e3/uL (140-360); RED BLOOD COUNT 3.82 x10e6/uL (4.3-5.7); RED CELL DISTRIBUTION WIDTH 12.9 % (11.7-14.4)
[2020-09-15 05:42] LABS: ALANINE AMINOTRANSFERASE 195 IU/L (0-55); ALBUMIN 1.5 g/dL (3.5-5.0); ALBUMIN/GLOBULIN RATIO 0.4 (0.8-2.0); ALKALINE PHOSPHATASE 124 IU/L (40-150); ANION GAP 13.4 mmol/L (8-16); BLOOD UREA NITROGEN 22 mg/dL (7-26); BUN/CREATININE RATIO 34 (6-25); CALCIUM 7.7 mg/dL (8.4-10.2); CARBON DIOXIDE 26 mmol/L (22-29); CHLORIDE 100 mmol/L (98-107); CREATININE, SERUM 0.65 mg/dL (0.72-1.25); EST GLOMERULAR FILTRATION RATE > 60 ML/MIN (60-); GLUCOSE 115 mg/dL (74-118); POTASSIUM 4.4 mmol/L (3.5-5.1); SODIUM 135 mmol/L (136-145)
[2020-09-15] MEDS: PANTOPRAZOLE SOD 40 MG TABEC PO SCH (07:16)
[2020-09-15 07:57] LABS: EOSINOPHILS % (MANUAL) 4 % (0-7); LYMPHOCYTES % (MANUAL) 5 % (19-48); MONOCYTES % (MANUAL) 7 % (3.4-9.0); NEUTROPHILS % (MANUAL) 84 % (40-74); PLATELET ESTIMATE ADEQUATE; RBC MORPHOLOGY COMMENT NORMAL
[2020-09-15 07:58] LABS: PLATELET MORPHOLOGY COMMENT RARE EDTA CLUMPING
[2020-09-15] MEDS: LISINOPRIL 20 MG TAB PO SCH (08:52)
[2020-09-15] MEDS: ASCORBIC ACID 500 MG TAB PO SCH ×2 (08:52→18:10)
[2020-09-15] MEDS: AMLODIPINE BESYLATE 10 MG TAB PO SCH (08:52)
[2020-09-15] MEDS: ZINC SULFATE 220 MG CAP PO SCH (08:52)
[2020-09-15] MEDS: ENOXAPARIN SODIUM INJ 100 MG/ML SYR SC SCH ×2 (08:53→20:28)
[2020-09-15 10:33] LABS: CLARITY,URINE CLEAR (CLEAR); COLOR,URINE YELLOW (YELLOW); KETONES,URINE NEGATIVE (NEGATIVE); LEUKOCYTE ESTERASE ,URINE NEGATIVE (NEGATIVE); NITRITE,URINE NEGATIVE (NEGATIVE); PROTEIN,URINE DIPSTICK 1+ (NEGATIVE); URINE UROBILINOGEN 0.2 mg/dL (0.2 - 1)
[2020-09-15 10:48] LABS: BACTERIA,URINE MODERATE /HPF; EPITHELIAL CELLS,URINE RARE /LPF; RBC,URINE 0-5 /HPF (0-5); WBC,URINE (MAN) 0-5 /HPF (0-5)
[2020-09-15] MEDS: ACETAMINOPHEN 325 MG TAB PO PRN (20:29)
[2020-09-16] VITALS (25 sets, daily range): BP systolic 95–139; BP diastolic 55–85
[2020-09-16] MEDS: BENZONATATE 100 MG CAP PO PRN ×2 (06:05→20:31)
[2020-09-16] MEDS: AMLODIPINE BESYLATE 10 MG TAB PO SCH (07:53)
[2020-09-16] MEDS: ZINC SULFATE 220 MG CAP PO SCH (07:53)
[2020-09-16] MEDS: PANTOPRAZOLE SOD 40 MG TABEC PO SCH (07:53)
[2020-09-16] MEDS: ASCORBIC ACID 500 MG TAB PO SCH ×2 (07:53→17:12)
[2020-09-16] MEDS: ENOXAPARIN SODIUM INJ 100 MG/ML SYR SC SCH ×2 (07:53→20:31)
[2020-09-16] MEDS: LISINOPRIL 20 MG TAB PO SCH (07:53)
[2020-09-17] VITALS (25 sets, daily range): BP systolic 103–149; BP diastolic 60–80
[2020-09-17 05:02] LABS: BASOPHILS % 0.4 % (0.0-1.0); EOSINOPHILS # (AUTO) 1.2 (0.0-0.4); EOSINOPHILS % 11.2 % (0.0-6.0); HEMATOCRIT 33.8 % (38.2-49.6); HEMOGLOBIN 11.1 g/dL (14.0-18.0); LYMPHOCYTES # (AUTO) 1.3 (1.0-3.2); MEAN CORPUSCULAR HEMOGLOBIN 30.6 pg (28-32); MEAN CORPUSCULAR HGB CONC 32.8 g/dL (31-35); MEAN CORPUSCULAR VOLUME 93.1 fL (81-99); MONOCYTES # (AUTO) 0.6 (0.2-0.8); MONOCYTES % 5.6 % (4.4-11.3); NEUTROPHILS # (AUTO) 7.5 (2.1-6.9); NEUTROPHILS % 69.9 % (38.7-80.0); PLATELET COUNT 313 x10e3/uL (140-360); RED BLOOD COUNT 3.63 x10e6/uL (4.3-5.7); RED CELL DISTRIBUTION WIDTH 12.9 % (11.7-14.4)
[2020-09-17 05:25] LABS: ALANINE AMINOTRANSFERASE 172 IU/L (0-55); ALBUMIN 1.5 g/dL (3.5-5.0); ALBUMIN/GLOBULIN RATIO 0.4 (0.8-2.0); ALKALINE PHOSPHATASE 97 IU/L (40-150); ANION GAP 13.6 mmol/L (8-16); BLOOD UREA NITROGEN 15 mg/dL (7-26); BUN/CREATININE RATIO 26 (6-25); CALCIUM 7.8 mg/dL (8.4-10.2); CARBON DIOXIDE 28 mmol/L (22-29); CHLORIDE 100 mmol/L (98-107); CREATININE, SERUM 0.58 mg/dL (0.72-1.25); EST GLOMERULAR FILTRATION RATE > 60 ML/MIN (60-); GLUCOSE 100 mg/dL (74-118); POTASSIUM 4.6 mmol/L (3.5-5.1); SODIUM 137 mmol/L (136-145)
[2020-09-17 07:06] LABS: PLATELET ESTIMATE ADEQUATE; PLATELET MORPHOLOGY COMMENT NORMAL; RBC MORPHOLOGY COMMENT NORMAL
[2020-09-17] MEDS: AMLODIPINE BESYLATE 10 MG TAB PO SCH (08:28)
[2020-09-17] MEDS: PANTOPRAZOLE SOD 40 MG TABEC PO SCH (08:28)
[2020-09-17] MEDS: ZINC SULFATE 220 MG CAP PO SCH (08:28)
[2020-09-17] MEDS: LISINOPRIL 20 MG TAB PO SCH (08:28)
[2020-09-17] MEDS: ENOXAPARIN SODIUM INJ 100 MG/ML SYR SC SCH ×2 (08:28→21:19)
[2020-09-17] MEDS: ASCORBIC ACID 500 MG TAB PO SCH ×2 (08:28→17:29)
[2020-09-17] MEDS: BENZONATATE 100 MG CAP PO PRN (21:20)
[2020-09-18] VITALS (8 sets, daily range): BP systolic 114–149; BP diastolic 65–73
[2020-09-18] MEDS: ASCORBIC ACID 500 MG TAB PO SCH ×2 (08:39→17:04)
[2020-09-18] MEDS: ZINC SULFATE 220 MG CAP PO SCH (08:39)
[2020-09-18] MEDS: ENOXAPARIN SODIUM INJ 100 MG/ML SYR SC SCH ×2 (08:39→20:56)
[2020-09-18] MEDS: AMLODIPINE BESYLATE 10 MG TAB PO SCH (08:39)
[2020-09-18] MEDS: PANTOPRAZOLE SOD 40 MG TABEC PO SCH (08:39)
[2020-09-18] MEDS: LISINOPRIL 20 MG TAB PO SCH (08:39)
[2020-09-18] MEDS: BENZONATATE 100 MG CAP PO PRN ×2 (10:06→22:52)
[2020-09-19] VITALS (8 sets, daily range): BP systolic 114–132; BP diastolic 62–75
[2020-09-19] MEDS: AMLODIPINE BESYLATE 10 MG TAB PO SCH (08:56)
[2020-09-19] MEDS: PANTOPRAZOLE SOD 40 MG TABEC PO SCH (08:56)
[2020-09-19] MEDS: ZINC SULFATE 220 MG CAP PO SCH (08:57)
[2020-09-19] MEDS: ASCORBIC ACID 500 MG TAB PO SCH ×2 (08:57→16:16)
[2020-09-19] MEDS: LISINOPRIL 20 MG TAB PO SCH (08:57)
[2020-09-19] MEDS: ENOXAPARIN SODIUM INJ 100 MG/ML SYR SC SCH ×2 (08:57→21:02)
[2020-09-19] MEDS ORDERED: LOPERAMIDE HCL 2 MG CAP PO PRN (15:30)
[2020-09-19] MEDS: BENZONATATE 100 MG CAP PO PRN (21:03)
[2020-09-20] VITALS (8 sets, daily range): BP systolic 110–122; BP diastolic 57–72
[2020-09-20 06:30] LABS: BASOPHILS # (AUTO) 0.1 (0.0-0.1); BASOPHILS % 0.7 % (0.0-1.0); EOSINOPHILS # (AUTO) 1.4 (0.0-0.4); EOSINOPHILS % 12.7 % (0.0-6.0); HEMATOCRIT 36.4 % (38.2-49.6); HEMOGLOBIN 11.5 g/dL (14.0-18.0); LYMPHOCYTES # (AUTO) 2.1 (1.0-3.2); LYMPHOCYTES % 20.2 % (18.0-39.1); MEAN CORPUSCULAR HEMOGLOBIN 30.5 pg (28-32); MEAN CORPUSCULAR HGB CONC 31.6 g/dL (31-35); MEAN CORPUSCULAR VOLUME 96.6 fL (81-99); MONOCYTES # (AUTO) 0.7 (0.2-0.8); MONOCYTES % 6.9 % (4.4-11.3); NEUTROPHILS # (AUTO) 6.2 (2.1-6.9); PLATELET COUNT 366 x10e3/uL (140-360); RED BLOOD COUNT 3.77 x10e6/uL (4.3-5.7); RED CELL DISTRIBUTION WIDTH 13.1 % (11.7-14.4)
[2020-09-20 07:09] LABS: ANION GAP 15.9 mmol/L (8-16); BLOOD UREA NITROGEN 11 mg/dL (7-26); BUN/CREATININE RATIO 18 (6-25); CALCIUM 7.9 mg/dL (8.4-10.2); CARBON DIOXIDE 26 mmol/L (22-29); CHLORIDE 99 mmol/L (98-107); CREATININE, SERUM 0.62 mg/dL (0.72-1.25); EST GLOMERULAR FILTRATION RATE > 60 ML/MIN (60-); GLUCOSE 83 mg/dL (74-118); POTASSIUM 4.9 mmol/L (3.5-5.1); SODIUM 136 mmol/L (136-145)
[2020-09-20] MEDS: PANTOPRAZOLE SOD 40 MG TABEC PO SCH (08:48)
[2020-09-20] MEDS: ENOXAPARIN SODIUM INJ 100 MG/ML SYR SC SCH ×2 (08:49→21:26)
[2020-09-20] MEDS: AMLODIPINE BESYLATE 10 MG TAB PO SCH (08:49)
[2020-09-20] MEDS: ZINC SULFATE 220 MG CAP PO SCH (08:49)
[2020-09-20] MEDS: LISINOPRIL 20 MG TAB PO SCH (08:49)
[2020-09-20] MEDS: ASCORBIC ACID 500 MG TAB PO SCH ×2 (08:49→15:55)
[2020-09-20] MEDS: BENZONATATE 100 MG CAP PO PRN ×2 (09:50→21:26)
[2020-09-20 10:41] LABS: FERRITIN 2966.32 ng/mL (21.81-274.66)
[2020-09-21] VITALS (7 sets, daily range): BP systolic 105–124; BP diastolic 59–78
[2020-09-21 05:34] LABS: BASOPHILS # (AUTO) 0.1 (0.0-0.1); BASOPHILS % 0.8 % (0.0-1.0); EOSINOPHILS # (AUTO) 1.5 (0.0-0.4); EOSINOPHILS % 15.4 % (0.0-6.0); HEMATOCRIT 34.8 % (38.2-49.6); HEMOGLOBIN 11.3 g/dL (14.0-18.0); LYMPHOCYTES # (AUTO) 1.9 (1.0-3.2); LYMPHOCYTES % 19.3 % (18.0-39.1); MEAN CORPUSCULAR HEMOGLOBIN 30.9 pg (28-32); MEAN CORPUSCULAR HGB CONC 32.5 g/dL (31-35); MEAN CORPUSCULAR VOLUME 95.1 fL (81-99); MONOCYTES # (AUTO) 0.7 (0.2-0.8); MONOCYTES % 7.6 % (4.4-11.3); NEUTROPHILS # (AUTO) 5.4 (2.1-6.9); NEUTROPHILS % 55.4 % (38.7-80.0); PLATELET COUNT 443 x10e3/uL (140-360); RED BLOOD COUNT 3.66 x10e6/uL (4.3-5.7); RED CELL DISTRIBUTION WIDTH 12.9 % (11.7-14.4)
[2020-09-21 08:22] LABS: EOSINOPHILS % (MANUAL) 17 % (0-7); LYMPHOCYTES % (MANUAL) 35 % (19-48); MONOCYTES % (MANUAL) 3 % (3.4-9.0); NEUTROPHILS % (MANUAL) 45 % (40-74)
[2020-09-21 08:23] LABS: PLATELET ESTIMATE ADEQUATE; PLATELET MORPHOLOGY COMMENT NORMAL; RBC MORPHOLOGY COMMENT NORMAL
[2020-09-21] MEDS: AMLODIPINE BESYLATE 10 MG TAB PO SCH (09:05)
[2020-09-21] MEDS: PANTOPRAZOLE SOD 40 MG TABEC PO SCH (09:05)
[2020-09-21] MEDS: ZINC SULFATE 220 MG CAP PO SCH (09:05)
[2020-09-21] MEDS: ASCORBIC ACID 500 MG TAB PO SCH ×2 (09:05→17:12)
[2020-09-21] MEDS: ENOXAPARIN SODIUM INJ 100 MG/ML SYR SC SCH ×2 (09:05→20:28)
[2020-09-21] MEDS: LISINOPRIL 20 MG TAB PO SCH (09:05)
[2020-09-21] MEDS: BENZONATATE 100 MG CAP PO PRN ×2 (09:22→20:44)
[2020-09-21] MEDS: MELATONIN 5 MG TABLET PO PRN (20:44)
[2020-09-22] VITALS (7 sets, daily range): BP systolic 112–123; BP diastolic 65–73
[2020-09-22 05:39] LABS: BASOPHILS # (AUTO) 0.1 (0.0-0.1); BASOPHILS % 0.9 % (0.0-1.0); EOSINOPHILS # (AUTO) 1.2 (0.0-0.4); EOSINOPHILS % 13.6 % (0.0-6.0); HEMATOCRIT 35.4 % (38.2-49.6); HEMOGLOBIN 11.6 g/dL (14.0-18.0); LYMPHOCYTES # (AUTO) 1.6 (1.0-3.2); LYMPHOCYTES % 18.2 % (18.0-39.1); MEAN CORPUSCULAR HEMOGLOBIN 30.7 pg (28-32); MEAN CORPUSCULAR HGB CONC 32.8 g/dL (31-35); MEAN CORPUSCULAR VOLUME 93.7 fL (81-99); MONOCYTES # (AUTO) 0.8 (0.2-0.8); MONOCYTES % 8.5 % (4.4-11.3); NEUTROPHILS # (AUTO) 5.1 (2.1-6.9); NEUTROPHILS % 57.5 % (38.7-80.0); PLATELET COUNT 476 x10e3/uL (140-360); RED BLOOD COUNT 3.78 x10e6/uL (4.3-5.7)
[2020-09-22 07:51] LABS: ANION GAP 13.7 mmol/L (8-16); BLOOD UREA NITROGEN 11 mg/dL (7-26); BUN/CREATININE RATIO 17 (6-25); CALCIUM 8.3 mg/dL (8.4-10.2); CARBON DIOXIDE 29 mmol/L (22-29); CHLORIDE 98 mmol/L (98-107); CREATININE, SERUM 0.63 mg/dL (0.72-1.25); EST GLOMERULAR FILTRATION RATE > 60 ML/MIN (60-); GLUCOSE 112 mg/dL (74-118); POTASSIUM 4.7 mmol/L (3.5-5.1); SODIUM 136 mmol/L (136-145)
[2020-09-22 07:54] LABS: EOSINOPHILS % (MANUAL) 11 % (0-7); LYMPHOCYTES % (MANUAL) 16 % (19-48); MONOCYTES % (MANUAL) 6 % (3.4-9.0); NEUTROPHILS % (MANUAL) 67 % (40-74)
[2020-09-22] MEDS: ASCORBIC ACID 500 MG TAB PO SCH ×2 (09:08→17:06)
[2020-09-22] MEDS: PANTOPRAZOLE SOD 40 MG TABEC PO SCH (09:08)
[2020-09-22] MEDS: AMLODIPINE BESYLATE 10 MG TAB PO SCH (09:08)
[2020-09-22] MEDS: LISINOPRIL 20 MG TAB PO SCH (09:08)
[2020-09-22] MEDS: ENOXAPARIN SODIUM INJ 100 MG/ML SYR SC SCH ×2 (09:08→21:03)
[2020-09-22] MEDS: ZINC SULFATE 220 MG CAP PO SCH (09:08)
[2020-09-22] MEDS: BENZONATATE 100 MG CAP PO PRN ×2 (09:30→22:50)
[2020-09-22] MEDS: MELATONIN 5 MG TABLET PO PRN (21:03)
[2020-09-23] VITALS (7 sets, daily range): BP systolic 110–123; BP diastolic 62–69
[2020-09-23] MEDS: ASCORBIC ACID 500 MG TAB PO SCH ×2 (10:33→17:30)
[2020-09-23] MEDS: ZINC SULFATE 220 MG CAP PO SCH (10:33)
[2020-09-23] MEDS: ENOXAPARIN SODIUM INJ 100 MG/ML SYR SC SCH ×2 (10:33→21:11)
[2020-09-23] MEDS: LISINOPRIL 20 MG TAB PO SCH (10:34)
[2020-09-23] MEDS: AMLODIPINE BESYLATE 10 MG TAB PO SCH (10:34)
[2020-09-23] MEDS: PANTOPRAZOLE SOD 40 MG TABEC PO SCH (10:34)
[2020-09-23] MEDS: ACETAMINOPHEN 325 MG TAB PO PRN (21:11)
[2020-09-23] MEDS: MELATONIN 5 MG TABLET PO PRN (21:11)
[2020-09-24] VITALS (7 sets, daily range): BP systolic 95–118; BP diastolic 57–75
[2020-09-24 06:36] LABS: BASOPHILS # (AUTO) 0.1 (0.0-0.1); EOSINOPHILS # (AUTO) 1.3 (0.0-0.4); EOSINOPHILS % 15.9 % (0.0-6.0); LYMPHOCYTES # (AUTO) 1.8 (1.0-3.2); LYMPHOCYTES % 21.5 % (18.0-39.1); MEAN CORPUSCULAR HEMOGLOBIN 30.5 pg (28-32); MEAN CORPUSCULAR HGB CONC 32.4 g/dL (31-35); MEAN CORPUSCULAR VOLUME 94.2 fL (81-99); MONOCYTES # (AUTO) 0.8 (0.2-0.8); MONOCYTES % 9.5 % (4.4-11.3); NEUTROPHILS # (AUTO) 4.2 (2.1-6.9); NEUTROPHILS % 50.8 % (38.7-80.0); PLATELET COUNT 503 x10e3/uL (140-360); RED BLOOD COUNT 3.61 x10e6/uL (4.3-5.7); RED CELL DISTRIBUTION WIDTH 13.1 % (11.7-14.4)
[2020-09-24] MEDS: PANTOPRAZOLE SOD 40 MG TABEC PO SCH (07:30)
[2020-09-24] MEDS: ZINC SULFATE 220 MG CAP PO SCH (10:08)
[2020-09-24] MEDS: ENOXAPARIN SODIUM INJ 100 MG/ML SYR SC SCH (10:08)
[2020-09-24] MEDS: AMLODIPINE BESYLATE 10 MG TAB PO SCH (10:08)
[2020-09-24] MEDS: LISINOPRIL 20 MG TAB PO SCH (10:08)
[2020-09-24] MEDS: ASCORBIC ACID 500 MG TAB PO SCH ×2 (10:08→16:50)
[2020-09-24] MEDS: BENZONATATE 100 MG CAP PO PRN (11:00)
[2020-09-24] MEDS: APIXABAN 5 MG TABLET PO SCH (16:50)
[2020-09-25] VITALS (9 sets, daily range): BP systolic 102–123; BP diastolic 47–70
[2020-09-25] MEDS: PANTOPRAZOLE SOD 40 MG TABEC PO SCH (07:30)
[2020-09-25] MEDS: AMLODIPINE BESYLATE 10 MG TAB PO SCH (08:22)
[2020-09-25] MEDS: LISINOPRIL 20 MG TAB PO SCH (08:22)
[2020-09-25] MEDS: APIXABAN 5 MG TABLET PO SCH ×2 (08:23→16:34)
[2020-09-25] MEDS: ASCORBIC ACID 500 MG TAB PO SCH ×2 (08:23→16:34)
[2020-09-25] MEDS: ZINC SULFATE 220 MG CAP PO SCH (08:23)
[2020-09-25] MEDS: MELATONIN 5 MG TABLET PO PRN (21:54)
[2020-09-25] MEDS: BENZONATATE 100 MG CAP PO PRN (21:54)
[2020-09-26] VITALS (7 sets, daily range): BP systolic 111–142; BP diastolic 63–80
[2020-09-26 06:43] LABS: BASOPHILS # (AUTO) 0.1 (0.0-0.1); BASOPHILS % 1.1 % (0.0-1.0); EOSINOPHILS # (AUTO) 1.2 (0.0-0.4); EOSINOPHILS % 13.1 % (0.0-6.0); HEMATOCRIT 34.9 % (38.2-49.6); HEMOGLOBIN 11.4 g/dL (14.0-18.0); LYMPHOCYTES # (AUTO) 1.7 (1.0-3.2); LYMPHOCYTES % 18.6 % (18.0-39.1); MEAN CORPUSCULAR HEMOGLOBIN 30.5 pg (28-32); MEAN CORPUSCULAR HGB CONC 32.7 g/dL (31-35); MEAN CORPUSCULAR VOLUME 93.3 fL (81-99); MONOCYTES % 10.4 % (4.4-11.3); NEUTROPHILS # (AUTO) 5.1 (2.1-6.9); NEUTROPHILS % 55.8 % (38.7-80.0); PLATELET COUNT 558 x10e3/uL (140-360); RED BLOOD COUNT 3.74 x10e6/uL (4.3-5.7); RED CELL DISTRIBUTION WIDTH 13.1 % (11.7-14.4)
[2020-09-26] MEDS: PANTOPRAZOLE SOD 40 MG TABEC PO SCH (09:05)
[2020-09-26] MEDS: APIXABAN 5 MG TABLET PO SCH ×2 (09:05→16:35)
[2020-09-26] MEDS: AMLODIPINE BESYLATE 10 MG TAB PO SCH (09:07)
[2020-09-26] MEDS: ASCORBIC ACID 500 MG TAB PO SCH ×2 (09:07→16:35)
[2020-09-26] MEDS: ZINC SULFATE 220 MG CAP PO SCH (09:07)
[2020-09-26] MEDS: LISINOPRIL 20 MG TAB PO SCH (09:08)
[2020-09-26] MEDS: BENZONATATE 100 MG CAP PO PRN (16:35)
[2020-09-26] MEDS: MELATONIN 5 MG TABLET PO PRN (22:00)
[2020-09-27] VITALS (8 sets, daily range): BP systolic 104–139; BP diastolic 60–74
[2020-09-27] MEDS: PANTOPRAZOLE SOD 40 MG TABEC PO SCH (08:00)
[2020-09-27] MEDS: APIXABAN 5 MG TABLET PO SCH ×2 (09:10→17:15)
[2020-09-27] MEDS: AMLODIPINE BESYLATE 10 MG TAB PO SCH (09:10)
[2020-09-27] MEDS: ASCORBIC ACID 500 MG TAB PO SCH ×2 (09:15→17:15)
[2020-09-27] MEDS: ZINC SULFATE 220 MG CAP PO SCH (09:15)
[2020-09-27] MEDS: LISINOPRIL 20 MG TAB PO SCH (09:15)
[2020-09-27] MEDS: BENZONATATE 100 MG CAP PO PRN (20:43)
[2020-09-27] MEDS: MELATONIN 5 MG TABLET PO PRN (20:43)
[2020-09-28] VITALS (7 sets, daily range): BP systolic 100–119; BP diastolic 52–72
[2020-09-28 05:09] LABS: BASOPHILS # (AUTO) 0.1 (0.0-0.1); EOSINOPHILS % 11.5 % (0.0-6.0); HEMATOCRIT 34.2 % (38.2-49.6); HEMOGLOBIN 11.1 g/dL (14.0-18.0); LYMPHOCYTES # (AUTO) 1.9 (1.0-3.2); LYMPHOCYTES % 21.3 % (18.0-39.1); MEAN CORPUSCULAR HEMOGLOBIN 30.7 pg (28-32); MEAN CORPUSCULAR HGB CONC 32.5 g/dL (31-35); MEAN CORPUSCULAR VOLUME 94.7 fL (81-99); MONOCYTES # (AUTO) 0.9 (0.2-0.8); NEUTROPHILS # (AUTO) 4.9 (2.1-6.9); NEUTROPHILS % 55.4 % (38.7-80.0); PLATELET COUNT 526 x10e3/uL (140-360); RED BLOOD COUNT 3.61 x10e6/uL (4.3-5.7); RED CELL DISTRIBUTION WIDTH 13.2 % (11.7-14.4)
[2020-09-28] MEDS: PANTOPRAZOLE SOD 40 MG TABEC PO SCH (08:34)
[2020-09-28] MEDS: ZINC SULFATE 220 MG CAP PO SCH (08:34)
[2020-09-28] MEDS: APIXABAN 5 MG TABLET PO SCH ×2 (08:34→17:40)
[2020-09-28] MEDS: ASCORBIC ACID 500 MG TAB PO SCH ×2 (08:34→17:40)
[2020-09-28] MEDS: BENZONATATE 100 MG CAP PO PRN ×2 (09:00→21:52)
[2020-09-28] MEDS: LISINOPRIL 20 MG TAB PO SCH (09:00)
[2020-09-28] MEDS: AMLODIPINE BESYLATE 10 MG TAB PO SCH (09:00)
[2020-09-28] MEDS ORDERED: GUAIFENESIN/CODEINE 10 ML CUP PO PRN (13:00)
[2020-09-28] MEDS ORDERED: BENZONATATE 100 MG CAP ONE (21:32)
[2020-09-28] MEDS ORDERED: MELATONIN 5 MG TABLET PO ONE (21:32)
[2020-09-28] MEDS: MELATONIN 5 MG TABLET PO PRN (21:52)
[2020-09-29] VITALS (8 sets, daily range): BP systolic 104–134; BP diastolic 61–81
[2020-09-29] MEDS: PANTOPRAZOLE SOD 40 MG TABEC PO SCH (07:30)
[2020-09-29] MEDS: APIXABAN 5 MG TABLET PO SCH ×2 (08:45→16:50)
[2020-09-29] MEDS: ZINC SULFATE 220 MG CAP PO SCH (08:46)
[2020-09-29] MEDS: AMLODIPINE BESYLATE 10 MG TAB PO SCH (08:46)
[2020-09-29] MEDS: ASCORBIC ACID 500 MG TAB PO SCH ×2 (08:46→16:50)
[2020-09-29] MEDS: LISINOPRIL 20 MG TAB PO SCH (08:46)
== END 2020-09-29 21:30 | DRG 871 ==
LOC: ER 10:41 → ERHOLD 12:50 → COVIDICU 09-01 18:35 → ICU 09-05 22:40 → MED/SURG3 09-17 23:30 → IMCU 09-24 01:19
PROVIDERS: ADMIT Internal Medicine; ATTEND Internal Medicine
PROC: 3E0333Z Introduction of Anti-inflammatory into Peripheral Vein, Percutaneous Approach (ICD-10-PCS; principal; 2020-08-31)
PROC: XW033E5 Introduction of Remdesivir Anti-infective into Peripheral Vein, Percutaneous Approach, New Technology Group 5 (ICD-10-PCS; 2020-08-31)
DX: A41.89 Other specified sepsis (principal); U07.1 COVID-19; J12.82 Pneumonia due to coronavirus disease 2019; J96.01 Acute respiratory failure with hypoxia; E87.2 Acidosis; E87.1 Hypo-osmolality and hyponatremia; N17.9 Acute kidney failure, unspecified; I82.443 Acute embolism and thrombosis of tibial vein, bilateral; E78.5 Hyperlipidemia, unspecified; E66.9 Obesity, unspecified; Z68.31 Body mass index [BMI] 31.0-31.9, adult; I12.9 Hypertensive chronic kidney disease with stage 1 through stage 4 chronic kidney disease, or unspecified chronic kidney disease; N18.9 Chronic kidney disease, unspecified; E78.00 Pure hypercholesterolemia, unspecified; E86.0 Dehydration; D64.9 Anemia, unspecified; R53.81 Other malaise
CPT/HCPCS: 36415; 71045; 74230; 76700; 80048; 80053; 81001; 82550; 82553; 82607; 82728; 82746; 82948; 83540; 83735; 84100; 84466; 84484; 85025; 85045; 85379; 85384; 85610; 85651; 86140; 87040; 93970; 97139; 99285; J0456; J0696; J1100; J1650; J2405; J7121; U0002